=== PATIENT | female | born 1990 | race Caucasian/White ===

== ENCOUNTER 2024-12-15 16:08 | Emergency (ER) | payer MEDICAID ==
[~2024-12-15] VITALS: Ht 170.2 cm; Wt 93.1 kg
[~2024-12-15 16:08] MED LIST: EPIN0.3P8 IM
[2024-12-15 16:14] VITALS: BP 130/82; PULSE 100; RESP 18; TEMP 97.8; O2SAT 98
--- NOTE | 2024-12-15 16:51 | RADIOLOGY REPORT ---
DI FOOT, COMPLETE (3VW MIN), INDICATION: FOOT PAIN TECHNICAL DATA: Frontal, oblique and lateral views were obtained of the left foot. COMPARISON: DI ANKLE, COMPLETE(3VW MIN) on DOS: 12/15/24 FINDINGS: Mildly displaced fracture at the base 5th metatarsal. Joint spaces are maintained. Alignment is anatomic. The hallux sesamoids appear normal. Soft tissues are within normal limits. IMPRESSION: Mildly displaced fracture at the base 5th metatarsal.
--- NOTE | 2024-12-15 16:51 | RADIOLOGY REPORT ---
DI ANKLE, COMPLETE(3VW MIN), INDICATION: ANKLE PAIN TECHNICAL DATA:Frontal , oblique and lateral views were obtained of the left ankle. COMPARISON: DI FOOT, COMPLETE (3VW MIN) on DOS: 12/15/24 FINDINGS: Mildly displaced fracture at the base 5th metatarsal. Joint spaces are maintained. Alignment is anatomic. Soft tissues are within normal limit. IMPRESSION: Mildly displaced fracture at the base 5th metatarsal.
--- NOTE | 2024-12-15 17:16 | Physician Documentation ---
History of Present Illness ~ Chief Complaint: Ankle pain Stated Complaint: FALL/L FOOT PAIN Time Seen by MD: 17:07 OK to notify your PCP?: Yes Primary Medical Doctor: none Source: patient, family Mode of Arrival: POV Exam Limitations: no limitations HPI 34-year-old female presents with left ankle and foot pain after she was walking today and stepped off the curb wrong. She reports being 16 weeks . She denies having knee related complications. She denies any head strike or other injuries from stepping off the curb. Has not taken any pain medication prior to arrival. Tetanus witin 5 years: No Medication Reconciliation Allergies: Coded Allergies: nut - unspecified (Verified Allergy, Severe, 12/15/24) ANAPHALAXIS codeine (Unverified Allergy, Mild, 11/15/16) Scheduled Epinephrine (Epipen 2-Juanito), 0.3 MG IM UD Past Medical History Past Medical History: No Pertinent History Past Surgical History: noncontributory Drug Use: none Lives with: Family Lives In: Home Review of Systems All Other Systems at this time: Reviewed and Negative Physical Exam Vital Signs: RN Vital Signs have been reviewed: Yes, Temperature: 97.8, Source: Oral, Heart Rate: 100, Respiratory Rate: 18, BP: 130/82, Pulse Oximetry: 98, Weight: 93.100 Pulse Oximetry Reflects: adequate oxygenation Physical Exam General: Alert, no distress. HEENT: No injection, moist mucous membranes. Neck: Full range of motion. Respiratory: No respiratory distress, equal chest rise and fall. Chest: No accessory muscle use. Cardiovascular: Regular rate and rhythm. Gastrointestinal: Nondistended. Extremities: Decreased range motion of left foot. Localized edema and ecchymosis to the lateral portion of left foot. Good pulses, good CSM, good sensation. Neurologic: Oriented x4. Psychiatric: Normal mood and affect. Skin: Normal color, warm and dry. 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 Mildly displaced fracture at the base 5th left metatarsal. Medical Decision Making Additional info obtained from: old records Findings As she has a mildly displaced fracture of the 5th left metatarsal, we gave instructions to be nonweightbearing with a cam boot and crutches until she sees orthopedic. She uses a walk-in clinic as her assigned primary care provider and we discussed that she will need to obtain a referral to Orthopedics from them. In the meantime since she is , the pain medication of choice would be Tylenol. We did discuss RICE therapy. She has no other injuries. She reports that she is 16 weeks with her 2nd child and does not have any complications from this thus far. We discussed she should avoid NSAID use due to her . Foot Diff Dx:Considerations: Include: Contusion, Dislocation, Hematoma, Neurovascular injury, Open fracture Departure Disposition: HOME / SELF CARE / HOMELESS Impression: Primary Impression: Metatarsal fracture Condition: Stable Discharge Instructions: Metatarsal Fracture Additional Instructions: Please follow up with your primary care provider within the next week to obtain a referral to Orthopedics. Your x-ray shows: Mildly displaced fracture at the base 5th left metatarsal. Continue to be non-weight bearing until you see an orthopedist and wear the boot and use your crutches. You can take Tylenol for your pain. Return back here for any new or worsening symptoms. Referrals: NO PRIMARY CARE PROVIDER (PCP) Education Educated: Patient Educated regarding: diagnosis, treatment, prognosis, need for follow up Additional Comment Medical Screen Exam This patient recieved a medical screening examination. After reviewing the individual's medical complaints with presenting symptoms and performing an appropriate physical examination, it was determined that no immediate life- threatening emergency medical condition is present. This individual is also not a women having contractions. Signature Scribe Signature: . Attestation: Scribed for Diane Hollis Lead Clinical Research Coordinator by Diane Mcelroy NP . 12/15/24 17:37 Parts of this note were created using [employer] voice recognition software program. While efforts were made to correct any mistakes made by this voice recognition software program, nonsensical phrases may remain in this note. In addition, there may be errors and syntax, grammar, content and spelling. DIANE HOLLIS [facility] Dec 15, 2024 17:16
== END 2024-12-15 17:46 | disposition home or self-care (01) ==
LOC: ER 16:08
DX: O9A.212 Injury, poisoning and certain other consequences of external causes complicating pregnancy, second trimester (principal); S92.352A Displaced fracture of fifth metatarsal bone, left foot, initial encounter for closed fracture; Z91.018 Allergy to other foods; Z3A.16 16 weeks gestation of pregnancy; X58.XXXA Exposure to other specified factors, initial encounter; Y93.01 Activity, walking, marching and hiking; Y92.89 Other specified places as the place of occurrence of the external cause; Y99.8 Other external cause status
CPT/HCPCS: 73610; 73630; 99284; L4360